=== PATIENT | female | born 1995 | race Caucasian/White ===

== ENCOUNTER 2024-11-13 20:28 | Emergency (ER) | payer OTHER, MEDICAID ==
[~2024-11-13] VITALS: Ht 170.2 cm; Wt 87.3 kg
[2024-11-13 20:43] VITALS: BP 140/85; PULSE 91; RESP 18; TEMP 98.1; O2SAT 100
[2024-11-13 22:46] LABS: BASOPHILS % (AUTO) 0.4 % (0.0-2.0); EOSINOPHILS % (AUTO) 1.8 % (1.0-6.0); HEMATOCRIT 40.8 % (36-46); HEMOGLOBIN 13.4 g/dL (12.0-16.0); LYMPHOCYTES % (AUTO) 26.6 % (22.0-44.0); MEAN CORPUSCULAR HEMOGLOBIN 28.8 pg (26.0-34.0); MEAN CORPUSCULAR HGB CONC 32.9 G/dL (31.0-37.0); MEAN CORPUSCULAR VOLUME 88 fL (80-100); MONOCYTES # (AUTO) 0.9 K/uL (0.1-1.0); MONOCYTES % (AUTO) 8.1 % (2.0-9.0); NEUTROPHILS # (AUTO) 7.1 K/uL (1.8-7.7); NEUTROPHILS % (AUTO) 63.1 % (40.0-70.0); PLATELET COUNT (AUTO) 442 K/uL (150-450); RED BLOOD CELL COUNT(AUTO) 4.66 MIL/uL (4.00-5.20); RED CELL DISTRIBUTION WIDTH 12.6 % (11.5-14.5); WHITE BLOOD COUNT (AUTO) 11.2 K/uL (4.5-11.0)
[2024-11-13 22:50] LABS: ANION GAP 7 mmol/L (8-16); CALCIUM, TOTAL 9.2 mg/dL (8.8-10.5); CARBON DIOXIDE 29 mmol/L (22-29); CHLORIDE 104 mmol/L (98-107); CREATININE 0.66 mg/dL (0.60-1.30); GLOMERULAR FILTR. RATE CALC > 60 mL/min (>60); GLUCOSE,RANDOM 94 mg/dL (70-110); POTASSIUM 3.9 mmol/L (3.5-5.1); SODIUM SERUM 140 mmol/L (136-145); UREA NITROGEN, BLOOD 7 mg/dL (7-18)
[2024-11-13 22:56] LABS: ALANINE AMINOTRANSFERASE 17 U/L (12-78); ALBUMIN 3.7 g/dL (3.4-5.0); ALKALINE PHOSPHATASE 90 U/L (46-116); ASPARTATE AMINOTRANSFERASE 13 U/L (15-37); BILIRUBIN,TOTAL 0.3 mg/dL (0.1-1.0); CREATINE KINASE, TOTAL ONLY 67 U/L (26-192); LIPASE 55 U/L (16-77); TOTAL PROTEIN, SERUM 7.4 g/dL (6.4-8.2)
[2024-11-13 22:58] LABS: TROPONIN I-HIGH SENSITIVITY 13 ng/L (<51)
[2024-11-13 23:07] LABS: B-TYPE NATRIURETIC PEPTIDE < 5 pg/mL (0-100)
[2024-11-14] MEDS ORDERED: ACET-3385 PO (00:34)
[2024-11-14] MEDS ORDERED: ONDA-104 PO (00:34)
[2024-11-14] MEDS: ACETAMINOPHEN 500 MG TABLET PO ONE (00:48)
[2024-11-14] MEDS: ONDANSETRON 4 MG TABLET PO ONE (00:48)
== END 2024-11-14 00:56 | disposition home or self-care (01) ==
LOC: EMS 20:28
DX: B34.9 Viral infection, unspecified (principal); R11.2 Nausea with vomiting, unspecified; R07.9 Chest pain, unspecified; R51.9 Headache, unspecified; R06.02 Shortness of breath
CPT/HCPCS: 99285; 71045; 80048; 80076; 82550; 83690; 83880; 84484; 84703; 85025; 36415; 93005; Q0162

== ENCOUNTER 2024-11-17 00:50 | Emergency (ER) | payer MEDICAID, OTHER ==
[~2024-11-17] VITALS: Ht 170.2 cm; Wt 84.1 kg
[~2024-11-17 00:50] MED LIST: ACET-3385 PO; ONDA-104 PO
[2024-11-17] MEDS: methocarbamoL 500 MG TABLET PO ONE (03:46)
[2024-11-17] MEDS: KETOROLAC TROMETHAMINE 30 MG/ML VIAL IM ONE (03:46)
[2024-11-17] MEDS: ACETAMINOPHEN 500 MG TABLET PO ONE (03:47)
[2024-11-17] MEDS: METOCLOPRAMIDE HCL 10 MG TABLET PO ONE (03:47)
[2024-11-17] MEDS ORDERED: METH-812 PO (04:27)
[2024-11-17 05:49] VITALS: BP 139/77; PULSE 72; RESP 13; TEMP 98.3; O2SAT 98
== END 2024-11-17 04:26 | disposition home or self-care (01) ==
LOC: EMS 00:52
DX: M62.838 Other muscle spasm (principal); F41.9 Anxiety disorder, unspecified; Z79.899 Other long term (current) drug therapy
CPT/HCPCS: 99284; 96372; J1885

== ENCOUNTER 2025-05-05 18:38 | Emergency (ER) | payer OTHER ==
[~2025-05-05] VITALS: Ht 170.2 cm; Wt 86.4 kg
[~2025-05-05 18:38] MED LIST changes: +METH-812 PO
[2025-05-05 18:58] VITALS: TEMP 98.6
[2025-05-05 20:21] LABS: PLATELET COUNT (AUTO) 294 K/uL (150-450); RED BLOOD CELL COUNT(AUTO) 4.67 MIL/uL (4.00-5.20); RED CELL DISTRIBUTION WIDTH 12.9 % (11.5-14.5); WHITE BLOOD COUNT (AUTO) 9.8 K/uL (4.5-11.0)
[2025-05-05 20:28] LABS: ASPARTATE AMINOTRANSFERASE 9 U/L (15-37); HCG,QUANTITATIVE < 1 mIU/mL (0-6); TOTAL PROTEIN, SERUM 7.1 g/dL (6.4-8.2)
[2025-05-05 20:37] LABS: CALCIUM, TOTAL 8.0 mg/dL (8.8-10.5); CREATININE 0.65 mg/dL (0.60-1.30); GLOMERULAR FILTR. RATE CALC > 60 mL/min (>60); GLUCOSE,RANDOM 101 mg/dL (70-110); SODIUM SERUM 140 mmol/L (136-145); UREA NITROGEN, BLOOD 7 mg/dL (7-18)
[2025-05-05] MEDS: ACETAMINOPHEN 500 MG TABLET PO ONE (23:30)
[2025-05-05] MEDS: KETOROLAC TROMETHAMINE 30 MG/ML VIAL IM ONE (23:30)
[2025-05-05] MEDS: ONDANSETRON 4 MG TABLET PO ONE (23:30)
[2025-05-05 23:51] LABS: APPEARANCE,URINE CLEAR (CLEAR); GLUCOSE, URINE (UA) NEGATIVE (NEGATIVE); LEUKOCYTE ESTERASE ,URINE NEGATIVE (NEGATIVE); NITRATE,URINE NEGATIVE (NEGATIVE); OCCULT BLOOD,URINE NEGATIVE (NEGATIVE); SPECIFIC GRAVITIY, URINE 1.023 (1.003-1.030)
[2025-05-06 03:32] VITALS: BP 141/94; PULSE 98; RESP 16; O2SAT 100
== END 2025-05-06 04:48 | disposition home or self-care (01) ==
LOC: EMS 18:38
DX: R07.89 Other chest pain (principal); R11.2 Nausea with vomiting, unspecified; R50.9 Fever, unspecified; F41.9 Anxiety disorder, unspecified; Z79.899 Other long term (current) drug therapy
CPT/HCPCS: 99284; 80048; 80076; 81003; 82150; 83690; 84702; 85025; 36415; 71110; 96372; J1885; Q0162

== ENCOUNTER 2025-06-01 20:58 | Emergency (ER) | payer OTHER ==
[~2025-06-01] VITALS: Ht 170.2 cm; Wt 70.5 kg
[2025-06-01 21:07] VITALS: BP 117/85; PULSE 91; RESP 20; TEMP 98.4; O2SAT 100
[2025-06-02] MEDS: IBUPROFEN 400 MG TABLET PO ONE (00:55)
[2025-06-02] MEDS: METOCLOPRAMIDE HCL 10 MG TABLET PO ONE (00:56)
[2025-06-02] MEDS: ACETAMINOPHEN 500 MG TABLET PO ONE (00:56)
[2025-06-02] MEDS: DEXAMETHASONE SOD PHOS 4 MG/ML 5 ML VIAL IVP ONE (03:11)
[2025-06-02] MEDS: SODIUM CHLORIDE 0.9% 1,000 ML IV ONE (03:11)
[2025-06-02] MEDS: MAGNESIUM SULFATE 1 GM in DEXTROSE 5%-WATER 50 ML IV ONE (03:25)
== END 2025-06-02 03:55 | disposition home or self-care (01) ==
LOC: EMS 20:58
DX: G43.909 Migraine, unspecified, not intractable, without status migrainosus (principal); F41.9 Anxiety disorder, unspecified
CPT/HCPCS: 99284; 96374; 96375; 96361; J1100; J1200; J1630; J7060; J3475; J7030

== ENCOUNTER 2025-06-18 23:21 | Emergency (ER) | payer OTHER ==
[~2025-06-18] VITALS: Ht 170.2 cm; Wt 81.8 kg
[2025-06-18 23:34] VITALS: TEMP 98.1
[2025-06-19 03:15] VITALS: BP 122/80; PULSE 84; RESP 18; O2SAT 95
== END 2025-06-19 03:24 | disposition home or self-care (01) ==
LOC: EMS 23:22
DX: T19.2XXA Foreign body in vulva and vagina, initial encounter (principal); F41.9 Anxiety disorder, unspecified; G43.909 Migraine, unspecified, not intractable, without status migrainosus; Z79.899 Other long term (current) drug therapy; W44.8XXA Other foreign body entering into or through a natural orifice, initial encounter
CPT/HCPCS: 99284; Z7502